=== PATIENT | female | born 1985 ===

== ENCOUNTER 2023-01-16 01:18 | Emergency (ER) | payer SELFPAY ==
[~2023-01-16] VITALS: Ht 152.4 cm; Wt 50.0 kg
[2023-01-16 01:26] VITALS: BP 118/66
== END 2023-01-16 11:04 | disposition left against medical advice (07) ==
LOC: EDBD 01:18 → ER 01:18
DX: S50.311A Abrasion of right elbow, initial encounter (principal); Z53.21 Procedure and treatment not carried out due to patient leaving prior to being seen by health care provider; X99.1XXA Assault by knife, initial encounter; Y93.89 Activity, other specified; Y92.89 Other specified places as the place of occurrence of the external cause; Y99.8 Other external cause status